=== PATIENT | female | born 1970 | race African-American/Black ===

== ENCOUNTER → 2016-12-28 | Outpatient (CLI) | payer BC ==
--- NOTE | 2016-12-30 09:53 | MM ---
Reason for exam: screening (asymptomatic). Last mammogram was performed 1 year and 5 months ago. Physical Findings: A clinical breast exam by your physician is recommended on an annual basis and results should be correlated with mammographic findings. MG Screening Mammo w CAD Bilateral CC and MLO view(s) were taken. Prior study comparison: July 14, 2015, bilateral MG screening mammo w CAD. July 11, 2014, bilateral MG screening mammo w CAD. July 09, 2013, bilateral digital screening mammo w/CAD. There are scattered fibroglandular densities. Asymmetric breast tissue 4-5cm from nipple in the right breast upper outer middle position. This finding is changed when compared with previous exams. ASSESSMENT: Incomplete: need additional imaging evaluation, BI-RAD 0 RECOMMENDATION: Special view mammogram of the right breast. If lesion persists on supplemental views, image directed ultrasound is recommended. [facility] will attempt to contact patient to return for supplemental views and ultrasound if indicated.
== END | disposition home or self-care (01) ==
LOC: RADMAMWWP 07:08
PROVIDERS: ATTEND Family Medicine
DX: Z12.31 Encounter for screening mammogram for malignant neoplasm of breast (principal)

== ENCOUNTER → 2017-01-04 | Outpatient (CLI) | payer BC ==
--- NOTE | 2017-01-05 07:26 | MM ---
Reason for exam: additional evaluation requested from abnormal screening. Last mammogram was performed less than 1 month ago. Physical Findings: Nurse did not find any significant physical abnormalities on exam. MG Work Up Mamm w CAD RT CC, MLO, ML, spot compression CC, and spot compression MLO view(s) were taken of the right breast. Prior study comparison: December 28, 2016, bilateral MG screening mammo w CAD. July 14, 2015, bilateral MG screening mammo w CAD. Asymmetric breast tissue in the right breast. No significant new findings when compared with previous films. These results were verbally communicated with the patient and result sheet given to the patient on 01/04/17. ASSESSMENT: Benign, BI-RAD 2 RECOMMENDATION: Routine screening mammogram of both breasts in 1 year.
== END | disposition home or self-care (01) ==
LOC: RADMAMWWP 07:03
PROVIDERS: ATTEND Family Medicine
DX: R92.8 Other abnormal and inconclusive findings on diagnostic imaging of breast (principal)

== ENCOUNTER → 2018-04-10 | Outpatient (CLI) | payer BC ==
--- NOTE | 2018-04-11 10:22 | MM ---
Reason for exam: screening (asymptomatic). Last mammogram was performed 1 year and 3 months ago. Physical Findings: A clinical breast exam by your physician is recommended on an annual basis and results should be correlated with mammographic findings. MG Screening Mammo w CAD Bilateral CC and MLO view(s) were taken. Prior study comparison: January 04, 2017, right breast MG work up mamm w CAD RT. December 28, 2016, bilateral MG screening mammo w CAD. There are scattered fibroglandular densities. No significant changes when compared with prior studies. ASSESSMENT: Benign, BI-RAD 2 RECOMMENDATION: Routine screening mammogram of both breasts in 1 year.
== END | disposition home or self-care (01) ==
LOC: RADMAMWWP 16:50
PROVIDERS: ATTEND Family Medicine
DX: Z12.31 Encounter for screening mammogram for malignant neoplasm of breast (principal)
CPT/HCPCS: 77067

== ENCOUNTER → 2019-06-22 | Outpatient (CLI) | payer BC | END | disposition home or self-care (01) | LOC: LABWHC1 17:03 | PROVIDERS: ATTEND Nurse Practitioner Family | DX: L65.9 Nonscarring hair loss, unspecified (principal) | CPT/HCPCS: 36415; 84443 ==

== ENCOUNTER → 2019-07-24 | Outpatient (CLI) | payer BC ==
--- NOTE | 2019-07-24 11:24 | MM ---
Reason for exam: screening (asymptomatic). Last mammogram was performed 1 year and 3 months ago. Physical Findings: A clinical breast exam by your physician is recommended on an annual basis and results should be correlated with mammographic findings. MG 3D Screening Mammo W/Cad Bilateral CC and MLO view(s) were taken. Prior study comparison: April 10, 2018, bilateral MG screening mammo w CAD. January 04, 2017, right breast MG work up mamm w CAD RT. There are scattered fibroglandular densities. There is no discrete abnormality. ASSESSMENT: Negative, BI-RAD 1 RECOMMENDATION: Routine screening mammogram of both breasts in 1 year.
== END | disposition home or self-care (01) ==
LOC: RADMAMWWP 08:25
PROVIDERS: ATTEND Family Medicine
DX: Z12.31 Encounter for screening mammogram for malignant neoplasm of breast (principal)
CPT/HCPCS: 77063; 77067

== ENCOUNTER → 2020-06-24 | Outpatient (CLI) | payer BC ==
[2020-06-24 22:18] LABS: Basophils # (A) 0.06 X 10*3/uL (0.00-0.10); Basophils % (A) 0.9 %; Eosinophils # (A) 0.16 X 10*3/uL (0.04-0.35); Eosinophils % (A) 2.5 %; HCT 40.1 % (37.2-46.3); HGB 12.7 g/dL (12.0-15.0); Lymphocytes # (A) 2.47 X 10*3/uL (0.90-5.00); Lymphocytes % (A) 38.7 %; MCH 25.5 pg (27.0-32.0); MCHC 31.7 g/dL (32.0-37.0); MCV 80.5 fL (80.0-97.0); Monocytes # (A) 0.67 X 10*3/uL (0.20-1.00); Monocytes % (A) 10.5 %; Neutrophils # (A) 3.01 X 10*3/uL (1.80-7.70); Neutrophils % (A) 47.1 %; Platelet Count 363 X 10*3/uL (140-440); RBC 4.98 X 10*6/uL (4.10-5.20); RDW 13.2 % (11.5-14.5); WBC 6.39 X 10*3/uL (4.50-10.00)
[2020-06-24 22:28] LABS: % Iron Saturation 8.25 (12.00-45.00)
[2020-06-24 22:37] LABS: Ferritin 7.8 ng/mL (10.0-291.0)
[2020-06-25 16:36] LABS: ANA Pattern Homogeneous; ANA Pattern 2 Nucleolar
== END | disposition home or self-care (01) ==
LOC: LABWHC1 16:11
PROVIDERS: ATTEND Physician Assistant Medical
DX: L65.9 Nonscarring hair loss, unspecified (principal)
CPT/HCPCS: 36415; 82728; 83540; 83550; 85025; 86038; 86039

== ENCOUNTER → 2020-07-17 | Outpatient (CLI) | payer BC ==
[2020-07-17 17:22] LABS: Basophils # (A) 0.04 X 10*3/uL (0.00-0.10); Basophils % (A) 0.7 %; Eosinophils # (A) 0.15 X 10*3/uL (0.04-0.35); Eosinophils % (A) 2.6 %; HCT 38.4 % (37.2-46.3); HGB 12.4 g/dL (12.0-15.0); Lymphocytes # (A) 1.72 X 10*3/uL (0.90-5.00); Lymphocytes % (A) 29.5 %; MCH 25.7 pg (27.0-32.0); MCHC 32.3 g/dL (32.0-37.0); MCV 79.5 fL (80.0-97.0); Mean Platelet Volume 10.8 fL (9.5-12.2); Monocytes # (A) 0.61 X 10*3/uL (0.20-1.00); Monocytes % (A) 10.4 %; Neutrophils # (A) 3.27 X 10*3/uL (1.80-7.70); Neutrophils % (A) 55.9 %; Platelet Count 237 X 10*3/uL (140-440); RBC 4.83 X 10*6/uL (4.10-5.20); RDW 13.5 % (11.5-14.5); WBC 5.84 X 10*3/uL (4.50-10.00)
[2020-07-17 20:46] LABS: African American GFR (CKD) 77.2 (60.0-200.0); Albumin 4.4 g/dL (3.80-4.90); Albumin/Globulin Ratio 1.19 (1.60-3.17); Anion Gap 14.8 mmol/L (4.00-12.00); Calcium 9.8 mg/dL (8.7-10.3); Carbon Dioxide 21.2 mmol/L (21.6-31.8); Chol/HDL Ratio 3.39; Globulin 3.7 g/dL (1.6-3.3); Non-African American GFR(CKD) 66.6 (60.0-200.0); Potassium 5.3 mmol/L (3.5-5.5); Total Bilirubin 0.6 mg/dL (0.2-1.2); Total Protein 8.1 g/dL (6.2-8.2)
[2020-07-22 21:54] LABS: DNA Double-Stranded NEGATIVE (NEGATIVE)
[2020-07-22 22:03] LABS: Anti-Smith Ab Interp NEGATIVE (NEGATIVE)
== END | disposition home or self-care (01) ==
LOC: LABWHC1 07:42
PROVIDERS: ATTEND Nurse Practitioner Family
DX: Z13.0 Encounter for screening for diseases of the blood and blood-forming organs and certain disorders involving the immune mechanism (principal); Z13.220 Encounter for screening for lipoid disorders; Z13.228 Encounter for screening for other metabolic disorders; Z13.1 Encounter for screening for diabetes mellitus; L65.9 Nonscarring hair loss, unspecified; E66.01 Morbid (severe) obesity due to excess calories
CPT/HCPCS: 36415; 80053; 80061; 83036; 84443; 85025; 86225; 86235

== ENCOUNTER → 2020-09-05 | Outpatient (CLI) | payer BC ==
--- NOTE | 2020-09-08 11:25 | MM ---
Reason for exam: screening (asymptomatic). Last mammogram was performed 1 year and 1 month ago. Physical Findings: A clinical breast exam by your physician is recommended on an annual basis and results should be correlated with mammographic findings. MG 3D Screening Mammo W/Cad Bilateral CC and MLO view(s) were taken. Prior study comparison: July 24, 2019, bilateral MG 3d screening mammo w/cad. April 10, 2018, bilateral MG screening mammo w CAD. There are scattered fibroglandular densities. There is no discrete abnormality. ASSESSMENT: Negative, BI-RAD 1 RECOMMENDATION: Routine screening mammogram of both breasts in 1 year.
== END | disposition home or self-care (01) ==
LOC: RADMAMWWP 16:16
PROVIDERS: ATTEND Family Medicine
DX: Z12.31 Encounter for screening mammogram for malignant neoplasm of breast (principal)
CPT/HCPCS: 77063; 77067

== ENCOUNTER → 2021-02-24 | Outpatient (CLI) | payer BC ==
--- NOTE | 2021-02-24 13:09 | XR ---
EXAMINATION TYPE: XR shoulder complete RT, 3 views DATE OF EXAM: 02/24/2021 Comparison: None Clinical History: 50-year-old female Right Shoulder Pain Findings: Mild degenerative joint space narrowing at the AC joint. Subacromial space is preserved. Some cystic change at the greater tuberosity. No tendinous or bursal calcifications. No acute fracture, subluxati on, or dislocation. Impression: Some bony change at the greater tuberosity suggests underlying chronic rotator cuff tendinopathy. Mil d AC joint OA.
== END | disposition home or self-care (01) ==
LOC: RADXRMAIN 09:15
PROVIDERS: ATTEND Family Medicine
DX: M19.011 Primary osteoarthritis, right shoulder (principal)

== ENCOUNTER → 2021-03-10 | Outpatient (CLI) | payer BC ==
[2021-03-11 01:15] LABS: African American GFR (CKD) 85.6 (60.0-200.0); Albumin 4.2 g/dL (3.8-4.9); Albumin/Globulin Ratio 0.95 (1.60-3.17); Anion Gap 12.7 mmol/L (4.00-12.00); BUN/Creat Ratio 11.55 Ratio (12.00-20.00); Blood Urea Nitrogen 10.6 mg/dL (9.0-27.0); Calcium 9.3 mg/dL (8.7-10.3); Carbon Dioxide 23.5 mmol/L (21.6-31.8); Globulin 4.5 g/dL (1.6-3.3); Non-African American GFR(CKD) 73.8 (60.0-200.0); Potassium 3.8 mmol/L (3.5-5.5); Total Bilirubin 0.5 mg/dL (0.30-1.20); Total Protein 8.7 g/dL (6.2-8.2)
== END | disposition home or self-care (01) ==
LOC: LABWHC1 16:29
PROVIDERS: ATTEND Family Medicine
DX: R79.89 Other specified abnormal findings of blood chemistry (principal)
CPT/HCPCS: 36415; 80053; 82977; 83615

== ENCOUNTER → 2021-04-11 | Outpatient (CLI) | payer BC ==
[2021-04-11 23:53] LABS: Protein, Total 8.2 g/dL (6.2-8.2)
[2021-04-11 23:58] LABS: ALT 17 U/L (8-44); AST 33 U/L (13-35); Albumin 3.9 g/dL (3.8-4.9); Albumin/Globulin Ratio 0.91 (1.60-3.17); Alkaline Phosphatase 56 U/L (41-126); Bilirubin, Conjugated <0.20 mg/dL (0.20-0.40); Ferritin 13.6 ng/mL (10.0-291.0); GGT 22 U/L (0-38); Globulin 4.3 g/dL (1.6-3.3); LDH 289 U/L (120-246); Total Protein 8.2 g/dL (6.2-8.2)
[2021-04-12] LABS: Hepatitis A Antibody IgM Nonreactive (Nonreactive); Hepatitis B Core IgM Nonreactive (Nonreactive); Hepatitis B Surface Antigen Nonreactive (Nonreactive); Hepatitis C IgG Antibody Nonreactive (Nonreactive)
[2021-04-13 15:56] LABS: Albumin 3.55 g/dL (3.80-4.90); Gamma Globulin 2.54 g/dL (0.70-1.50)
== END | disposition home or self-care (01) ==
LOC: LABWHC1 11:52
PROVIDERS: ATTEND Family Medicine
DX: R94.5 Abnormal results of liver function studies (principal); R77.9 Abnormality of plasma protein, unspecified
CPT/HCPCS: 36415; 80074; 80076; 82728; 82977; 83615; 84165; 86334

== ENCOUNTER → 2021-04-29 | Outpatient (CLI) | payer BC ==
--- NOTE | 2021-04-29 08:09 | MR ---
EXAMINATION TYPE: MR angio head wo con DATE OF EXAM: 04/29/2021 COMPARISON: CT brain January 30, 2013 HISTORY: Possible Vertigo/ CT Brain from 2012 on pacs TECHNIQUE: Time of flight images focusing on the [place] of [place] were performed without contrast.. 2-D and 3-D postprocessing imaging is performed on an independent workstation and reviewed. FINDINGS: : Dominant vertebral artery that are patent to basilar junction redemonstrated. There are p atent bilateral posterior communicating arteries. There is no significant focal stenosis or aneurysm in the posterior circulation. Images of the anterior circulation show small caliber and length anterior communicating artery. No si gnificant focal stenosis or aneurysm is seen. IMPRESSION: No aneurysm at level of [place] of [place].
--- NOTE | 2021-04-29 08:14 | MR ---
EXAMINATION TYPE: MR brain wo con DATE OF EXAM: 04/29/2021 COMPARISON: CT brain 01/30/2013. HISTORY: Possible Vertigo TECHNIQUE: Multiplanar, multisequence imaging of the brain and brainstem is performed without IV cont rast. FINDINGS: Diffusion weighted images demonstrate no evidence of a recent infarct or other diffusion abnormality. The ventricular system and cisternal spaces are normal in size and appearance. The brain volume is a ge appropriate. Occasional scattered T2 hyperintense focus, approximately 5 scattered lesions for ref erence a posterior left frontal cortical 4 to 5 mm lesion axial image 20 is noted. Lesions are nonspe cific in appearance and distribution. No suspicious fluid signal in the bilateral mastoid air cells. Midline structures demonstrate normal morphology. The craniocervical junction appears within normal limits. Normal vascular flow voids are present. The visualized sinuses are clear and the globes are i ntact. IMPRESSION: Mild nonspecific white matter changes otherwise unremarkable study.
== END | disposition home or self-care (01) ==
LOC: RADMRIMAIN 08:19
PROVIDERS: ATTEND Psychiatry & Neurology Neurology
DX: R93.0 Abnormal findings on diagnostic imaging of skull and head, not elsewhere classified (principal)
CPT/HCPCS: 70544; 70551

== ENCOUNTER → 2021-12-02 | Outpatient (CLI) | payer BC ==
[2021-12-02 11:57] LABS: Basophils # (A) 0.1 k/uL (0-0.2); Basophils % (A) 1 %; Eosinophils # (A) 0.2 k/uL (0-0.7); Eosinophils % (A) 4 %; HCT 36.7 % (34.0-46.0); HGB 11.6 gm/dL (11.4-16.0); Hypochromasia Slight; Lymphocytes # (A) 1.9 k/uL (1.0-4.8); Lymphocytes % (A) 28 %; MCH 22.8 pg (25.0-35.0); MCHC 31.7 g/dL (31.0-37.0); Mean Platelet Volume 8.3; Microcytosis Moderate; Monocytes # (A) 0.5 k/uL (0-1.0); Monocytes % (A) 8 %; Neutrophils # (A) 3.7 k/uL (1.3-7.7); Neutrophils % (A) 56 %; Platelet Count 319 k/uL (150-450); RBC 5.09 m/uL (3.80-5.40); RDW 15.5 % (11.5-15.5); WBC 6.6 k/uL (3.8-10.6)
[2021-12-02 15:24] LABS: ALT 13 U/L (8-44); AST 39 U/L (13-35); African American GFR (CKD) 84.4 (60.0-200.0); Albumin 4.2 g/dL (3.8-4.9); Albumin/Globulin Ratio 0.86 (1.60-3.17); Alkaline Phosphatase 56 U/L (41-126); BUN/Creat Ratio 16.36 Ratio (12.00-20.00); Blood Urea Nitrogen 15.1 mg/dL (9.0-27.0); Calcium 9.5 mg/dL (8.7-10.3); Carbon Dioxide 18.7 mmol/L (20.0-27.5); Chloride 101 mmol/L (96-109); Chol/HDL Ratio 3.75 Ratio; Globulin 4.9 g/dL (1.6-3.3); Glucose 86 mg/dL (70-110); LDL Cholesterol,Calculated 110.6 mg/dL (0.0-131.0); Non-African American GFR(CKD) 72.8 (60.0-200.0); Potassium 4.6 mmol/L (3.5-5.5); Sodium 134 mmol/L (135-145); Total Protein 9.1 g/dL (6.2-8.2); VLDL Calculation 16.26 mg/dL (5.00-40.00)
--- NOTE | 2021-12-03 17:33 | MM ---
Reason for Exam: Screening (asymptomatic). Last mammogram was performed 1 year(s) and 3 month(s) ago. Patient History: Menarche at age 14. First Full-Term at age 23. Risk Values: Jelena 5 year model risk: 0.8%. NCI Lifetime model risk: 8.2%. Prior Study Comparison: 04/10/2018 Bilateral Screening Mammogram, [facility]. 07/24/2019 Bilateral Screening Mammogram, [facility]. 09/05/2020 Bilateral Screening Mammogram, [facility]. Tissue Density: There are scattered fibroglandular densities. Findings: Analyzed By CAD. There is no suspicious group of microcalcifications or new suspicious mass in either breast. Overall Assessment: Negative, BI-RAD 1 Management: Screening Mammogram of both breasts in 1 year. 1. Patient should continue monthly self breast exams. 2. A clinical breast exam by your physician is recommended on an annual basis. 3. This exam should not preclude additional follow-up of suspicious palpable abnormalities. Electronically signed and approved by: Courtney Mcnamara M.D. Radiologist
== END | disposition home or self-care (01) ==
LOC: RADMAMWWP 09:44
PROVIDERS: ATTEND Family Medicine
DX: Z12.31 Encounter for screening mammogram for malignant neoplasm of breast (principal)
CPT/HCPCS: 77063; 77067; 80053; 80061; 84443; 85025

== ENCOUNTER → 2022-09-04 | Outpatient (CLI) | payer BC ==
[2022-09-04 13:01] LABS: HCT 33.1 % (37.2-46.3); HGB 9.8 g/dL (12.0-15.0); MCH 20.1 pg (27.0-32.0); MCHC 29.6 g/dL (32.0-37.0); Mean Platelet Volume 9.4 fL (9.5-12.2); NRBC Per 100 WBC 0 /100 WBCS (0.0-0.0); Platelet Count 428 X 10*3/uL (140-440); RBC 4.87 X 10*6/uL (4.10-5.20); RDW 17.8 % (11.5-14.5); WBC 5.83 X 10*3/uL (4.50-10.00)
[2022-09-04 13:39] LABS: Basophils # (A) 0.06 X 10*3/uL (0.00-0.10); C Reactive Protein <0.30 mg/dL (0.00-0.80); Eosinophils # (A) 0.24 X 10*3/uL (0.04-0.35); Eosinophils % (A) 4.1 %; Ferritin 7.5 ng/mL (10.0-291.0); Hypochromasia (M) 2+; Immature Grans, Automated 0.2 %; Iron 25 ug/dL (50-170); Lymphocytes # (A) 2.11 X 10*3/uL (0.90-5.00); Lymphocytes % (A) 36.2 %; Microcytosis (M) 2+; Monocytes # (A) 0.73 X 10*3/uL (0.20-1.00); Monocytes % (A) 12.5 %; Neutrophils # (A) 2.68 X 10*3/uL (1.80-7.70); Uric Acid 5.9 mg/dL (2.9-7.7)
[2022-09-04 15:13] LABS: Erythrocyte Sedimentation Rate 36 mm/Hr (0-20)
--- NOTE | 2022-09-05 23:31 | XR ---
EXAMINATION TYPE: XR hand complete 3 views LT DATE OF EXAM: 09/04/2022 Comparison: None Clinical History: 52-year-old female M79.642 PAIN LEFT HAND Findings: Small 4 mm sclerotic focus within the third middle phalangeal head, likely a bone island. Second bone island in the distal aspect of the third proximal phalanx. Moderate to advanced degenerative change at the first CMC joint with joint space narrowing, marginal spurring, and subchondral sclerosis. No a cute fracture, subluxation, or dislocation. 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 No acute osseous abnormality seen.
[2022-09-06 09:23] LABS: HLA B27 NEGATIVE
== END | disposition home or self-care (01) ==
LOC: LABWHC1 09:50
PROVIDERS: ATTEND Nurse Practitioner Family
DX: M19.042 Primary osteoarthritis, left hand (principal); I73.00 Raynaud's syndrome without gangrene; L65.9 Nonscarring hair loss, unspecified; G47.19 Other hypersomnia; Z86.32 Personal history of gestational diabetes
CPT/HCPCS: 36415; 82607; 82728; 82746; 83036; 83540; 84439; 84443; 84481; 84550; 85025; 85652; 86038; 86039; 86140; 86235; 86812

== ENCOUNTER → 2022-09-04 | Outpatient (CLI) | payer BC | END | disposition home or self-care (01) | LOC: RADXRMAIN 10:31 | PROVIDERS: ATTEND Family Medicine | DX: Z53.9 Procedure and treatment not carried out, unspecified reason (principal) ==

== ENCOUNTER → 2023-01-18 | Outpatient (CLI) | payer BC | LOC: CPPFTMAIN 07:38 | PROVIDERS: ATTEND Family Medicine | DX: R06.09 Other forms of dyspnea (principal) | CPT/HCPCS: 94060; 94726; 94729 ==

== ENCOUNTER → 2023-05-17 | Outpatient (CLI) | payer BC ==
--- NOTE | 2023-05-17 18:10 | MM ---
Reason for Exam: Screening (asymptomatic). Last mammogram was performed 1 year(s) and 6 month(s) ago. Patient History: Menarche at age 14. First Full-Term at age 23. Last menstrual period: 04/29/2023 Risk Values: Jelena 5 year model risk: 0.9%. NCI Lifetime model risk: 7.9%. Prior Study Comparison: 07/24/2019 Bilateral Screening Mammogram, [facility]. 09/05/2020 Bilateral Screening Mammogram, [facility]. 12/02/2021 Bilateral MG 3D screening mammo w/cad, [facility]. Tissue Density: There are scattered fibroglandular densities. Findings: Analyzed By CAD. There is no suspicious group of microcalcifications or new suspicious mass in either breast. Overall Assessment: Negative, BI-RAD 1 Management: Screening Mammogram of both breasts in 1 year. . Patient should continue monthly self-breast exams. A clinical breast exam by your physician is recommended on an annual basis. This exam should not preclude additional follow-up of suspicious palpable abnormalities. Note on Jelena scores and lifetime risk: 1. A Jelena score greater than 3% is considered moderate risk. If this is the case, consider specialist referral to assess eligibility for a risk reducing agent. 2. If overall lifetime risk for the development of breast cancer is 20% or higher, the patient may qualify for future screening with alternating mammogram and breast MRI. Electronically signed and approved by: Courtney Mcnamara M.D. Radiologist
== END | disposition home or self-care (01) ==
LOC: RADMAMWWP 07:39
PROVIDERS: ATTEND Family Medicine
DX: Z12.31 Encounter for screening mammogram for malignant neoplasm of breast (principal)
CPT/HCPCS: 77063; 77067

== ENCOUNTER → 2023-08-30 | Outpatient (CLI) | payer BC ==
[2023-08-30 11:40] LABS: Basophils # (A) 0.04 X 10*3/uL (0.00-0.10); Basophils % (A) 0.9 %; Eosinophils # (A) 0.23 X 10*3/uL (0.04-0.35); HGB 13.4 g/dL (12.0-15.0); Lymphocytes # (A) 1.59 X 10*3/uL (0.90-5.00); Lymphocytes % (A) 34.9 %; MCH 26.3 pg (27.0-32.0); MCHC 31.9 g/dL (32.0-37.0); MCV 82.5 FL (80.0-97.0); Mean Platelet Volume 10.5 FL (9.5-12.2); Monocytes # (A) 0.58 X 10*3/uL (0.20-1.00); Monocytes % (A) 12.7 %; NRBC Per 100 WBC 0 X 10*3/uL (0.00-0.01); Neutrophils % (A) 46.1 %; Platelet Count 271 X 10*3/uL (140-440); RBC 5.09 X 10*6/uL (4.10-5.20); WBC 4.56 X 10*3/uL (4.50-10.00)
[2023-08-30 12:07] LABS: ALT 21 U/L (8-44); AST 37 U/L (13-35); Albumin 4.3 g/dL (3.8-4.9); Albumin/Globulin Ratio 0.98 Ratio (1.60-3.17); Alkaline Phosphatase 53 U/L (41-126); Blood Urea Nitrogen 15.8 mg/dL (9.0-27.0); Calcium 10.1 mg/dL (8.7-10.3); Carbon Dioxide 21.4 mmol/L (21.6-31.8); Chloride 100 mmol/L (96-109); Chol/HDL Ratio 2.87 Ratio; Globulin 4.4 g/dL (1.6-3.3); Glucose 99 mg/dL (70-110); Iron 68 UG/DL (50-170); LDL Cholesterol,Calculated 90.5 mg/dL (0.0-131.0); Potassium 4.5 mmol/L (3.5-5.5); Sodium 134 mmol/L (135-145); Total Bilirubin 0.5 mg/dL (0.3-1.2); Total Protein 8.7 g/dL (6.2-8.2); VLDL Calculation 13.74 mg/dL (5.00-40.00)
== END | disposition home or self-care (01) ==
LOC: LABWHC1 07:46
PROVIDERS: ATTEND Family Medicine
DX: Z00.00 Encounter for general adult medical examination without abnormal findings (principal); R79.0 Abnormal level of blood mineral; Z79.899 Other long term (current) drug therapy
CPT/HCPCS: 36415; 80053; 80061; 83540; 84443; 84481; 85025

== ENCOUNTER → 2024-09-14 | Outpatient (CLI) | payer BC ==
--- NOTE | 2024-09-14 10:12 | XR ---
EXAMINATION TYPE: XR shoulder complete RT DATE OF EXAM: 09/14/2024 10:08 AM INDICATION: Patient age:Female; 54 years old; Reason for study: M25.511 PAIN IN RIGHT SHOULDER; pain COMPARISON: Right shoulder radiograph 02/24/2021 TECHNIQUE: The right shoulder was examined in AP, internally rotated and scapular Y projections. . FINDINGS: No evidence of acute osseous pathology, joint dislocation, or soft tissue swelling. Mild degenerative joint space narrowing at the AC joint. The remaining portions of the visualized chest are unremarkab le. IMPRESSION: 1. No acute osseous pathology. 2. Mild AC joint arthropathy. [facility], , 09/14/2024 10:09 AM
[2024-09-14 15:56] LABS: Basophils # (A) 0.05 X 10*3/uL (0.00-0.10); Eosinophils # (A) 0.26 X 10*3/uL (0.04-0.35); Eosinophils % (A) 5.2 %; HCT 42.2 % (37.2-46.3); HGB 13.3 g/dL (12.0-15.0); Lymphocytes % (A) 32.1 %; MCH 25.9 pg (27.0-32.0); MCHC 31.5 g/dL (32.0-37.0); MCV 82.1 FL (80.0-97.0); Monocytes # (A) 0.55 X 10*3/uL (0.20-1.00); NRBC Per 100 WBC 0 X 10*3/uL (0.00-0.01); Neutrophils # (A) 2.49 X 10*3/uL (1.80-7.70); Neutrophils % (A) 50.1 %; Platelet Count 317 X 10*3/uL (140-440); RBC 5.14 X 10*6/uL (4.10-5.20); RDW 12.7 % (11.5-14.5); WBC 4.98 X 10*3/uL (4.50-10.00)
[2024-09-14 17:22] LABS: Chol/HDL Ratio 2.89 Ratio; Iron 99 UG/DL (50-170)
[2024-09-14 17:23] LABS: ALT 48 U/L (8-44); AST 141 U/L (13-35); Albumin 4.4 g/dL (3.8-4.9); Albumin/Globulin Ratio 0.96 Ratio (1.60-3.17); Alkaline Phosphatase 54 U/L (41-126); Blood Urea Nitrogen 16.3 mg/dL (9.0-27.0); Calcium 9.9 mg/dL (8.7-10.3); Carbon Dioxide 24.1 mmol/L (21.6-31.8); Chloride 99 mmol/L (96-109); Globulin 4.6 g/dL (1.6-3.3); Glucose 97 mg/dL (70-110); LDL Cholesterol,Calculated 98.3 mg/dL (0.0-131.0); Potassium 4.6 mmol/L (3.5-5.5); Sodium 136 mmol/L (135-145); Total Bilirubin 0.5 mg/dL (0.3-1.2); VLDL Calculation 10.26 mg/dL (5.00-40.00)
== END | disposition home or self-care (01) ==
LOC: LABWHC1 08:16
PROVIDERS: ATTEND Family Medicine
DX: Z00.00 Encounter for general adult medical examination without abnormal findings (principal); Z51.81 Encounter for therapeutic drug level monitoring; R79.0 Abnormal level of blood mineral; Z79.899 Other long term (current) drug therapy; E66.9 Obesity, unspecified; M19.011 Primary osteoarthritis, right shoulder
CPT/HCPCS: 36415; 80053; 80061; 83036; 83525; 83540; 84443; 84481; 85025

== ENCOUNTER → 2024-09-14 | Outpatient (CLI) | payer BC ==
--- NOTE | 2024-09-14 10:06 | MM ---
Reason for Exam: Screening (asymptomatic). Last mammogram was performed 1 year(s) and 4 month(s) ago. Patient History: Menarche at age 14. First Full-Term at age 23. Last menstrual period: 09/03/2024 Risk Values: Jelena 5 year model risk: 0.9%. NCI Lifetime model risk: 7.8%. Prior Study Comparison: 09/05/2020 Bilateral Screening Mammogram, [facility]. 12/02/2021 Bilateral MG 3D screening mammo w/cad, [facility]. 05/17/2023 Bilateral MG 3D screening mammo w/cad, [facility]. Tissue Density: There are scattered areas of fibroglandular density. Findings: Analyzed By CAD. Right breast: There is no suspicious group of microcalcifications or new suspicious mass. Left breast: There is no suspicious group of microcalcifications or new suspicious mass. Overall Assessment: Negative, BI-RAD 1 Management: Screening Mammogram of both breasts in [address] [facility] will attempt to contact patient to return for supplemental views and ultrasound if indicated. Patient should continue monthly self-breast exams. A clinical breast exam by your physician is recommended on an annual basis. This exam should not preclude additional follow-up of suspicious palpable abnormalities. Note on Jelena scores and lifetime risk: 1. A Jelena score greater than 3% is considered moderate risk. If this is the case, consider specialist referral to assess eligibility for a risk reducing agent. 2. If overall lifetime risk for the development of breast cancer is 20% or higher, the patient may qualify for future screening with alternating mammogram and breast MRI. [facility], , 09/14/2024 10:03 AM. Electronically signed and approved by: Hugo Larkin DO
== END | disposition home or self-care (01) ==
LOC: RADMAMWWP 09:21
PROVIDERS: ATTEND Family Medicine
DX: Z12.31 Encounter for screening mammogram for malignant neoplasm of breast (principal); R92.323 Mammographic fibroglandular density, bilateral breasts
CPT/HCPCS: 77063; 77067

== ENCOUNTER → 2024-11-28 | Outpatient (CLI) | payer BC | END | disposition home or self-care (01) | LOC: LABWHC1 14:57 | PROVIDERS: ATTEND Surgery Plastic and Reconstructive Surgery | DX: R07.89 Other chest pain (principal) | CPT/HCPCS: 36415; 93005 ==